=== PATIENT | female | born 1980 | race Caucasian/White ===

== ENCOUNTER → 2020-08-26 | Day surgery (SDC) | payer OTHER ==
[~2020-08-26] MED LIST: IBUPROFEN600 MG PO
[2020-08-26 07:18] LABS: HEMOGLOBIN 12.9 gm/dl (12.3-15.3); RED BLOOD COUNT 4.25 M/UL (4.00-5.10)
== END | disposition home or self-care (01) ==
LOC: OR 06:36
PROVIDERS: Obstetrics & Gynecology
DX: N92.0 Excessive and frequent menstruation with regular cycle (principal); N85.8 Other specified noninflammatory disorders of uterus; N83.209 Unspecified ovarian cyst, unspecified side; F17.210 Nicotine dependence, cigarettes, uncomplicated; Z88.1 Allergy status to other antibiotic agents; Z88.8 Allergy status to other drugs, medicaments and biological substances; Z91.048 Other nonmedicinal substance allergy status
CPT/HCPCS: 36415; 81001; 84703; 85025; J1100; J1885; J2250; J2405; J2704; J2795; J3010; J7030; J7120

== ENCOUNTER → 2021-04-11 | Outpatient (CLI) | payer OTHER | LOC: KOH-I 12:48 | DX: R31.9 Hematuria, unspecified (principal); R10.9 Unspecified abdominal pain; N20.0 Calculus of kidney; D39.8 Neoplasm of uncertain behavior of other specified female genital organs | CPT/HCPCS: 74176 ==

== ENCOUNTER → 2021-06-07 | Outpatient (CLI) | payer OTHER ==
[~2021-06-07] MED LIST changes: +COLACE 100MG C100 MG PO; +ENDOCET 10-3251 EACH PO; +IBUPROFEN200 MG PO
[2021-06-07 11:22] LABS: HEMOGLOBIN 13.6 gm/dl (12.3-15.3); RED BLOOD COUNT 4.51 M/UL (4.00-5.10); WHITE BLOOD COUNT 8.3 K/UL (4.5-11.0)
== END ==
LOC: OPSV2 10:00
PROVIDERS: Obstetrics & Gynecology
DX: Z01.812 Encounter for preprocedural laboratory examination (principal); N83.209 Unspecified ovarian cyst, unspecified side
CPT/HCPCS: 36415; 81001; 85025

== ENCOUNTER → 2021-06-09 | Day surgery (SDC) | payer OTHER | END | disposition home or self-care (01) | LOC: OR 06:16 | DX: D27.0 Benign neoplasm of right ovary (principal); N72 Inflammatory disease of cervix uteri; E34.9 Endocrine disorder, unspecified; F17.210 Nicotine dependence, cigarettes, uncomplicated; Z98.890 Other specified postprocedural states; Z20.822 Contact with and (suspected) exposure to COVID-19; Z88.1 Allergy status to other antibiotic agents; Z88.8 Allergy status to other drugs, medicaments and biological substances | CPT/HCPCS: J0690; J1100; J1885; J2001; J2250; J2405; J2704; J2710; J2795; J3010; J7120 ==